=== PATIENT | female | born 1960 | race Two or more races ===

== ENCOUNTER 2017-11-03 08:43 | Outpatient (CLI) | END 2017-11-03 08:44 | disposition home or self-care (01) | LOC: RAD 08:43 | PROVIDERS: ATTEND Family Medicine | DX: Z12.31 Encounter for screening mammogram for malignant neoplasm of breast (principal) | CPT/HCPCS: 77067 ==

== ENCOUNTER 2018-05-31 14:10 | Outpatient (CLI) ==
--- NOTE | 2018-05-31 15:36 | DI ---
EXAM: Right ankle. Three-view HISTORY: Right ankle pain COMPARISON: None FINDINGS: No fracture of the tibia or fibula. Ankle mortise symmetric. Small calcific densities abo ut the dorsal aspect of the talus and navicular. IMPERSSION: Small calcific densities about the dorsal aspect of the talus and navicular are favored chronic or degenerative, though small avulsion fractures not excluded.
== END 2018-05-31 14:11 | disposition home or self-care (01) ==
LOC: RAD 14:10
PROVIDERS: ATTEND Family Medicine
DX: M25.471 Effusion, right ankle (principal)

== ENCOUNTER 2018-11-08 10:00 | Outpatient (CLI) | END 2018-11-08 10:01 | disposition home or self-care (01) | LOC: RAD 10:00 | PROVIDERS: ATTEND Family Medicine | DX: Z12.31 Encounter for screening mammogram for malignant neoplasm of breast (principal) ==